=== PATIENT | male | born 1995 | race Caucasian/White ===

== ENCOUNTER 2024-01-15 09:59 | Emergency (ER) | payer BC, SELFPAY ==
[2024-01-15 10:08] VITALS: BP 139/76; PULSE 60; RESP 17; TEMP 36.6; O2SAT 100
[2024-01-15 10:16] VITALS: O2SAT 100
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
[2024-01-15] MEDS: PANTOPRAZOLE 40 MG TABLET PO (10:50)
[2024-01-15 10:51] LABS: Hemoglobin 16.2 g/dL (14.0-18.0); Mean Corpuscular Hemoglobin 29.8 pg (26-34); Mean Corpuscular Volume 82.7 fl (80-100); Mean Platelet Volume 8.6 fl (7.4-10.4); Platelet Count Result 200 k/mm3 (150-375); Red Blood Count 5.44 M/mm3 (4.6-6.20); Red Cell Distribution Width 12.8 % (11.5-14.5); White Blood Count 7.1 K/mm3 (4.5-10.0)
[2024-01-15 11:02] LABS: Alanine Aminotransferase 17 U/L (6-50); Albumin Level 4.9 g/dL (3.5-5.1); Alkaline Phosphatase 50 U/L (38-126); Anion Gap 14 mmol/L (4-12); Aspartate Amino Transferase 26 U/L (17-59); Bilirubin,Total 1.3 mg/dL (0.2-1.3); Blood Urea Nitrogen 13 mg/dL (9-20); Calcium 9.9 mg/dL (8.4-10.2); Carbon Dioxide 24 mmol/L (22-30); Chloride 96 mmol/L (98-107); Estimated CRCL calculation 113 ml/min; Estimated Glomerular Filt Rate > 60; Glucose 86 mg/dL (65-110); Lactate Dehydrogenase 105 U/L (120-246); Potassium 3.7 mmol/L (3.4-5.0); Sodium 134 mmol/L (137-145)
[2024-01-15 11:15] LABS: Strep Group A RT-PCR NOT DETECTED (Negative)
[2024-01-15 11:18] LABS: Lymphocytes Absolute Manual 2.34 K/mm3 (1.1-4.5); Metamyelocytes Percent 1 %; Monocytes Absolute Manual 0.49 K/mm3 (0.1-0.90); Monocytes Percent Manual 7 % (3-9); Neutrophils Percent Manual 59 % (46-73); Total Cells Counted 100
[2024-01-15 11:19] LABS: Platelet Estimate Adequate (Adequate); Schistocytes None Seen
[2024-01-15] MEDS: DEXTROSE 5%/0.9% SOD CHL 500 ML 250 ML IV CONT (11:24)
[2024-01-15 11:27] LABS: Influenza A QL RT-PCR Negative (Negative); Influenza B QL RT-PCR Negative (Negative); RSV RNA, RT-PCR Negative (Negative); SARS-CoV-2 RNA PCR Negative (Negative)
[2024-01-15 11:30] LABS: Erythrocyte Sedimentation Rate 4 mm/hr (0-20)
[2024-01-15 12:33] VITALS: BP 124/59; PULSE 60; RESP 20; TEMP 36.4; O2SAT 100
[2024-01-17 16:28] LABS: Haptoglobin 166 mg/dL (43-212)
== END 2024-01-15 12:36 | disposition home or self-care (01) ==
PROVIDERS: Emergency Provider Student in an Organized Health Care Education/Training Program
DX: K20.90 Esophagitis, unspecified without bleeding (principal); T36.4X5A Adverse effect of tetracyclines, initial encounter; Z20.822 Contact with and (suspected) exposure to COVID-19
CPT/HCPCS: 36415; 80053; 83010; 83615; 85025; 85652; 87637; 87651; 96360; 99283; A9270; J7042